=== PATIENT | male | born 1985 | race Caucasian/White ===

== ENCOUNTER 2019-08-19 23:10 | Emergency (ER) | payer SELFPAY ==
[2019-08-19] MEDS ORDERED: Morphine 4 MG/ML VIAL ONE (23:26)
[2019-08-19] MEDS ORDERED: Ondansetron PF 4 MG/2 ML Vial ONE (23:27)
[2019-08-19 23:43] LABS: #Basophils 0.1 thou/uL (0.0-0.2); #Eosinphils 0.2 thou/uL (0.0-0.7); #Lymphocytes 2.3 thou/uL (1.20-3.40); #Monocytes 0.7 thou/uL (0.11-0.59); #Neutrophils 4.8 thou/uL (1.40-6.50); %Basophils 0.9 % (0.0-1.0); %Eosinophils 2.8 % (0.0-10.0); %Lymphocytes 28.8 % (21.0-51.0); %Monocytes 8.4 % (0.0-10.0); Hemoglobin 17.2 g/dL (14.0-18.0); Mean Corpuscular HGB CONC 35.8 g/dL (32.0-36.0); Mean Corpuscular Volume 83.7 fL (78.0-98.0); Mean Platelet Volume 7.5 fL (7.4-10.4); Platelet Count 249 thou/uL (130-400); RBC Distribution Width 13.4 % (11.5-14.5); Red Blood Cell (RBC) Count 5.73 mill/uL (4.70-6.10)
--- NOTE | 2019-08-20 00:04 | CT ---
ABDOMEN AND PELVIC CT WITH CONTRAST: Comparison: None Indication: Abdominal pain. FINDINGS: No lobar consolidation of the lung bases. Bowel is incompletely assessed without enteric contrast. Th ere is no free air. No ascites. Abdominal aorta is normal in caliber. Solid abdominal organs are unre markable. No acute osseous pathology is visualized. Evaluation of the unopacified small bowel loops reveals scattered loops of borderline sized diameter and slight injection of the abdominal mesentery. IMPRESSION: Limited evaluation of the bowel. There are borderline sized fluid filled small bowel loops with mild increased density of the mesenteric fat. This may be on the basis of an enteritis, or possibly ileus/ low grade obstruction. Recommend clinical correlation in this regard. Additional details are discussed above. POS: Prabhu
[2019-08-20 00:05] LABS: ALT (SGPT) 37 U/L (8-55); AST (SGOT) 25 U/L (5-34); Albumin 4.5 g/dL (3.5-5.0); Alkaline Phosphatase 82 U/L (40-110); Anion Gap 13 mmol/L (10-20); BUN (Urea Nitrogen) 15 mg/dL (8.9-20.6); Bilirubin, Total 0.4 mg/dL (0.2-1.2); CK (CPK) 158 U/L (30-200); Calc. Creatinine Clearance 0 mL/min (70-130); Calcium 9.4 mg/dL (7.8-10.44); Carbon Dioxide 25 mmol/L (22-29); Chloride 103 mmol/L (98-107); Estimated GFR-MDRD 82; Glucose 97 mg/dL (70-105); Lipase 36 U/L (8-78); Potassium 3.6 mmol/L (3.5-5.1); Protein, Total 7.5 g/dL (6.0-8.3); Sodium 137 mmol/L (136-145)
[2019-08-20 00:12] LABS: Bilirubin Negative (Negative); Blood, Urine Negative (Negative); Clarity Clear (Clear); Glucose, Urine (Dipstick) Normal (Negative); Leukocyte Negative Leu/uL (Negative); Nitrite Negative (Negative); Protein, Urine (Dipstick) Negative (Neg-Trace); Urobilinogen Normal mg/dL (Less than 2)
== END 2019-08-20 02:00 | disposition home or self-care (01) ==
LOC: ERS 23:10
DX: K52.9 Noninfective gastroenteritis and colitis, unspecified (principal); F17.220 Nicotine dependence, chewing tobacco, uncomplicated
CPT/HCPCS: 36415; 74177; 80053; 81003; 82550; 83690; 84484; 85025; 93005; 96361; 96372; 96374; 96375; J0500; J2270; J2405